=== PATIENT | female | born 1945 | race African-American/Black ===

== ENCOUNTER 2022-04-08 17:26 | Emergency (ER) | payer MEDICARE, BC ==
[~2022-04-08] VITALS: Ht 154.9 cm; Wt 77.0 kg
[~2022-04-08 17:26] MED LIST: ASPI-1497 PO; ROSU20TA29 PO; VALS160T28 PO
[2022-04-08] MEDS ORDERED: HYDROCODONE/ACETAMINOPHEN 5/325MG TABLET PO ONE (20:15)
[2022-04-08] MEDS ORDERED: CYCL5TAB MT (23:04)
[2022-04-08] MEDS ORDERED: TOPUD MT (23:04)
[2022-04-08 23:22] VITALS: BP 108/78
== END 2022-04-08 23:20 | disposition home or self-care (01) ==
LOC: ER 17:26
DX: M79.662 Pain in left lower leg (principal); R07.81 Pleurodynia; M25.562 Pain in left knee; E78.00 Pure hypercholesterolemia, unspecified; V43.52XA Car driver injured in collision with other type car in traffic accident, initial encounter; Y93.89 Activity, other specified; Y92.410 Unspecified street and highway as the place of occurrence of the external cause; Z79.82 Long term (current) use of aspirin
CPT/HCPCS: 71101; 73560; 99284

== ENCOUNTER 2022-05-12 09:32 | Emergency (ER) | payer MEDICARE, BC ==
[~2022-05-12] VITALS: Ht 154.9 cm; Wt 76.0 kg
[~2022-05-12 09:32] MED LIST changes: +CYCL5TAB MT; +TOPUD MT
[2022-05-12 10:54] LABS: BASOPHILS % 0.4 % (0.0-2.0); EOSINOPHILS % 3.7 % (0.0-5.0); HEMATOCRIT. 36.6 % (36.0-48.0); HEMOGLOBIN. 12.5 g/dL (12.0-16.0); LYMPHOCYTES % 17.4 % (20.0-50.0); MEAN CORPUSCULAR HEMOGLOBIN 30.2 pg (28.0-32.0); MEAN CORPUSCULAR VOLUME 88.8 fL (81.0-99.0); MEAN PLATELET VOLUME 8.2 fl (7.4-10.4); MONOCYTES % 8.2 % (2.0-8.0); NEUTROPHILS % 70.3 % (40.0-76.0); PLATELET 249 x1000/uL (130-400); RED BLOOD CELL COUNT 4.12 mill/uL (4.2-5.4); RED CELL DISTRIBUTION WIDTH 14.5 % (11.6-14.6)
[2022-05-12] MEDS ORDERED: HYDRALAZINE 20MG/ML VIAL IV ONE (12:00)
[2022-05-12 14:41] VITALS: BP 142/67
[2022-05-12 21:19] LABS: CHLORIDE 107 mEq/L (98-107)
== END 2022-05-12 14:54 | disposition home or self-care (01) ==
LOC: ER 09:32 → EDBEDREQTM 11:04 → EDBEDREQ 11:04 → CANBEDREQ 14:22 → ER 14:54 → SUPCPDRO 21:36
DX: S06.5XAA Traumatic subdural hemorrhage with loss of consciousness status unknown, initial encounter (principal); I10 Essential (primary) hypertension; E78.00 Pure hypercholesterolemia, unspecified; I25.10 Atherosclerotic heart disease of native coronary artery without angina pectoris; Z79.01 Long term (current) use of anticoagulants; Z95.2 Presence of prosthetic heart valve; V43.92XA Unspecified car occupant injured in collision with other type car in traffic accident, initial encounter; Y93.89 Activity, other specified; Y92.488 Other paved roadways as the place of occurrence of the external cause
CPT/HCPCS: 36415; 71045; 80053; 85025; 93005; 99291

== ENCOUNTER → 2022-07-02 | Outpatient (CLI) | payer MEDICARE, BC | END | disposition home or self-care (01) | LOC: CT 10:22 | PROVIDERS: ATTEND Neurological Surgery | DX: G31.9 Degenerative disease of nervous system, unspecified (principal); I62.03 Nontraumatic chronic subdural hemorrhage; R90.82 White matter disease, unspecified; I67.82 Cerebral ischemia ==